=== PATIENT | female | born 1990 | race Caucasian/White ===

== ENCOUNTER 2021-05-29 17:36 | Emergency (ER) | payer BC, SELFPAY ==
--- NOTE | ~2021-05-29 | XR_ITS ---
EXAMINATION: XR chest 2V DATE: 05/29/2021 18:09 INDICATION: Cough. TECHNIQUE: Frontal and lateral views of the chest were obtained on 3 radiographs. COMPARISON: None. FINDINGS: There are airspace opacities in left mid and lower lung zones. No pleural effusion or pneum othorax. The heart size is normal. IMPRESSION: 1. Mild airspace opacities in left mid and lower lung zones, consistent with atelectasis versus pneum onia. Reviewed, dictated and finalized at location A. IMPRESSION: 1. Mild airspace opacities in left mid and lower lung zones, consistent with at electasis versus pneumonia.
[2021-05-29 17:49] VITALS: BP 131/79; PULSE 100; RESP 18; TEMP 35.9; O2SAT 95
--- NOTE | 2021-05-29 17:50 | ED.URI ---
HPI - URI/Sore Throat General Chief Complaint: Upper Respiratory Infection Stated Complaint: Stuffy Nose Time Seen by Provider: 05/29/21 17:50 Source: patient and RN notes reviewed Mode of arrival: ambulatory Limitations: no limitations History of Present Illness HPI Narrative: 31-year-old female presents to the [facility] with complaints of cough, sinus issues, shortness of breath, subjective fever. Related Data Allergies Allergy/AdvReac Type Severity Reaction Status Date / Time No Known Allergies Allergy Verified 05/29/21 18:13 Review of Systems Review of Systems: All systems reviewed & are unremarkable except as noted in HPI and below Constitutional: Constitutional: Reports as per HPI, Reports chills and Reports fever(s) Eyes: Eyes: Reports no additional eye complaints Cardiovascular: Cardiovascular: Reports no additional cardiovascular complaints Respiratory: Respiratory: Reports as per HPI, Reports cough, Reports dyspnea and Reports wheezing Gastrointestinal: Gastrointestinal: Reports no additional gastrointestinal complaints Musculoskeletal: Musculoskeletal: Reports no additional musculoskeletal complaints Integumentary/Breasts: Skin/Breast: Reports system reviewed and no additional complaints, except as docu Neurologic: Reports system reviewed and no additional complaints, except as documented Psychiatric: Psychiatric: Reports no additional psychiatric complaints Allergic/Immunologic: Allergic/Immunologic: Reports no additional allergic/immunologic complaints PMFSH Past Medical History Medical History (Updated 05/29/21 @ 19:59 by Jennyfer Cano) No significant past medical history Surgical History Surgical History (Updated 05/29/21 @ 19:59 by Jennyfer Cano) No significant past surgical history No significant past surgical history Social History Social History (Updated 05/29/21 @ 19:59 by Jennyfer Cano) Living arrangements: with family Occupation/Education: student Gender identity (if verbalized by the patient): Female Comments At the time of my signature, I reviewed and agree with the nursing past medical, surgical, social, and family history. There is no relevant family history pertinent to the patient complaint. Exam Const: General: no acute distress, alert and ill appearing acutely Nutritional Appearance: well nourished and obese Orientation/consciousness: patient oriented x3 Limitations: no limitations HENMT: Head: normal to inspection Ears: external ears normal, TM's normal bilaterally and EAC's normal Eyes: Conjunctivae: conjunctivae normal Pupils: Equal, round and reactive pupils present Neck: Neck: normal visual inspection, no lymphadenopathy and no meningeal signs Chest: Chest palpation & inspection: normal inspection of the chest Resp: Effort & Inspection: normal respiratory effort Auscultation: wheezes (Right lower) and diminished lung sounds bilateral in the lower lung fontaine Cardio: Rate: regular rate Rhythm: regular rhythm : General: Yes no CVA tenderness Back/Spine/Pelvis: Back: no CVA tenderness Skin: General skin exam: normal color Rashes: no rashes Wounds: no wounds Neuro: General: patient oriented x3, moves all extremities, no meningeal signs and no focal motor deficits Speech: normal speech Gait exam (Neuro): Normal gait present Extrem: General: normal to inspection Psych: Appearance: grossly normal and well kempt Mental Status: mental status grossly normal Affect: normal affect Attitude: cooperative Thought content: Yes Normal thought content present Course Course Emergency Course: Reevaluation of patient, lungs now clear to auscultation no longer wheezing. Patient states he is able to take a deep breath and feeling better. Discharge instructions reviewed with patient, as well as provided in writing per nursing staff. The instructions also include specific and strict return/GO TO THE ER as well as f/u information. All questions vera
[2021-05-29] MEDS: IPRATROPIUM BR 0.02% INH SOLN 0.5 MG/2.5 ML VIAL INHALATION (18:11)
[2021-05-29] MEDS: ALBUTEROL SULFATE NEB 2.5 MG/3 ML INH INHALATION (18:11)
== END 2021-05-29 19:00 | disposition home or self-care (01) ==
PROVIDERS: Emergency Provider Nurse Practitioner
DX: J18.9 Pneumonia, unspecified organism (principal); I10 Essential (primary) hypertension
CPT/HCPCS: 71046; 87081; 87880; 99203; G0463

== ENCOUNTER 2022-01-08 11:07 | Emergency (ER) | payer BC, SELFPAY ==
[2022-01-08 11:16] VITALS: BP 145/76; PULSE 84; RESP 16; TEMP 37; O2SAT 99
--- NOTE | 2022-01-08 11:18 | ED.SKABFB ---
HPI - Skin/Abscess/Foreign Bdy General Chief complaint: Skin/Abscess/Foreign Body Stated complaint: Swollen eye and nose Time Seen by Provider: 01/08/22 11:19 Source: patient Mode of arrival: ambulatory Limitations: no limitations History of Present Illness HPI narrative: 31-year-old female presented for complaints of eye swelling and a reddened bump on the bridge of her nose for 3 days. States she is woke each day and Has been swollen shut which reduces throughout the day. Also states had cold symptoms which resolved for a short time, at the onset of the eye swelling she felt more sinus pressure and congestion. She denies pain, vision changes, foreign body sensation, itching, or drainage to the site. She has applied cold compresses. She denies any known allergies. Denies sob, cough, n/v/d/f/c. Related Data Allergies Allergy/AdvReac Type Severity Reaction Status Date / Time No Known Allergies Allergy Verified 01/08/22 11:15 Review of Systems Review of Systems: CONSTITUTIONAL: Denies body aches, fever, chills, or sweats. EYES: Denies visual changes, or discharge. ENT: Denies sore throat, or otalgia. CARDIOVASCULAR: Denies chest pain, palpitations, or edema. RESPIRATORY: Denies cough or dyspnea. GASTROINTESTINAL: Denies abdominal pain, nausea, vomiting, or diarrhea. GENITOURINARY: Denies dysuria or hematuria. SKIN: rash, itching, wounds. MUSCULOSKELETAL: Denies back pain, joint pain, or myalgia. NEUROLOGIC: Denies headache, numbness, tingling, or weakness. PSYCH: Denies depression or anxiety. [facility] Past Medical History Medical History No significant past medical history Surgical History Surgical History No significant past surgical history No significant past surgical history Social History Social History Gender identity (if verbalized by the patient): Female Comments At time of signature, I have reviewed and agree with nursing past medical, surgical, social and family history unless otherwise noted. Please see nursing chart for further information. There is no relevant family history pertinent to the presenting complaint Exam Narrative: GENERAL: Well-appearing HEAD: Normocephalic, atraumatic. EYES: PERRLA, conjunctivae clear, and EOMI. Right eye with mild periorbital swelling, no bruising or drainage; right bridge of nose with firm subcutaneous nontender red nodule approx 0.5cm diameter, no active drainage or vesicles noted ENT: Mucous membranes moist. Oropharynx without edema, erythema or lesions. NECK: Supple. No lymphadenopathy CHEST: Clear to auscultation. No respiratory distress. HEART: Regular rate and rhythm. SKIN: Warm, dry. NEURO: Alert and oriented x3. PSYCH: Normal mood and affect Course Course Emergency Course: Patient is aware of diagnosis, understands and agrees to treatment plan. Anticipatory guidance given. Patient agrees to follow-up as directed and is aware of reasons to seek care at the emergency department. Portions of this record may have been created with voice recognition software Level of Care: Express Care Visit Vital Signs Vital signs: Vital Signs Temperature 98.6 F 01/08/22 11:16 Pulse Rate 84 01/08/22 11:16 Respiratory Rate 16 01/08/22 11:16 Blood Pressure 145/76 H 01/08/22 11:16 Pulse Oximetry 99 01/08/22 11:16 Oxygen Delivery Room Air 01/08/22 11:16 Temperature 98.6 F 01/08/22 11:16 Pulse Rate 84 01/08/22 11:16 Respiratory Rate 16 01/08/22 11:16 Blood Pressure 145/76 H 01/08/22 11:16 Pulse Oximetry 99 01/08/22 11:16 Oxygen Delivery Room Air 01/08/22 11:16 Reviewed MDM - Skin/Abscess/Foreign Bdy MDM Narrative Medical decision making narrative: Patient looks well, nontoxic, afebrile; appropriate for initial outpatient treatment; discussed the
== END 2022-01-08 11:32 | disposition home or self-care (01) ==
PROVIDERS: Emergency Provider Nurse Practitioner Family; PCP Physician Assistant
DX: H00.032 Abscess of right lower eyelid (principal); J34.0 Abscess, furuncle and carbuncle of nose; I10 Essential (primary) hypertension; R73.03 Prediabetes
CPT/HCPCS: 99213; G0463

== ENCOUNTER 2022-01-30 22:08 | Emergency (ER) | payer BC, SELFPAY ==
--- NOTE | ~2022-01-30 | XR_ITS ---
EXAM: XR wrist RT min 3V DATE: 01/30/2022 22:18 HISTORY: fall TODAY, POSTERIOR PAIN WITH ROTATION . COMPARISON: None available. FINDINGS: Normal mineralization. No fracture or dislocation. No lytic or blastic lesion. Joint space s are maintained. No erosion or periosteal change. Soft tissues within normal limits. IMPRESSION: No acute osseous finding in the right wrist. Reviewed, dictated and finalized at location K.
--- NOTE | ~2022-01-30 | XR_ITS ---
EXAM: XR forearm RT 2V DATE: 01/30/2022 22:40 HISTORY: bony tenderness s/p fall,PAIN RT WRIST RADIATES MID FOREARM . COMPARISON: None available. FINDINGS: Normal mineralization. No fracture or dislocation. No lytic or blastic lesion. Joint space s are maintained. No erosion or periosteal change. Soft tissues within normal limits. IMPRESSION: No acute osseous finding in the right forearm . Reviewed, dictated and finalized at location K.
[2022-01-30 22:20] VITALS: BP 150/104; PULSE 96; RESP 16; TEMP 36.2; O2SAT 98
--- NOTE | 2022-01-30 22:43 | ED.GENADULT ---
HPI - General Adult General Chief complaint: Extremity Injury, Upper Stated complaint: right wrist injury Time Seen by Provider: 01/30/22 22:22 History of Present Illness HPI narrative: Patient is a 31-year-old female here for evaluation of right wrist and forearm pain after a fall today. Patient states that she was walking in her usual state of health when she tripped over a curb and landed with her right hand outstretched on the pavement. Denies head injury or loss of consciousness. Since the incident she has been complaining of right wrist pain. Denies numbness or tingling in her hands. Able to move hands without trouble. Denies further injury in the incident. Related Data Home Medications Medication Instructions Recorded Confirmed terbinafine HCl 250 mg tablet tablet 01/30/22 Allergies Allergy/AdvReac Type Severity Reaction Status Date / Time No Known Allergies Allergy Verified 01/30/22 22:08 Review of Systems Review of Systems: Gen.: Denies fevers or chills Eyes: Denies eye pain or visual change ENT: Denies congestion Respiratory: Denies shortness of breath or cough CV: Denies chest pain or palpitations GI: Reports abdominal pain nausea, emesis or diarrhea denies burning, urgency, frequency or hematuria Musculoskeletal: Reports right hand pain. Neuro: Denies numbness, tingling, weakness or focal weakness Skin: Denies rash 10 point review of systems negative, other than as per history of present illness, past medical history and other positives and review of systems PMFSH Past Medical History Medical History No significant past medical history Surgical History Surgical History No significant past surgical history No significant past surgical history Social History Social History Gender identity (if verbalized by the patient): Female Exam Narrative: Gen: Alert, oriented, no acute distress. Eyes: EOMI, no icterus Pulm: Respirations even and unlabored, symmetric thorax expansion, no audible stridor or visible cyanosis CV: Regular rate per telemetry GI: No distension, no voluntary/involuntary guarding Neuro: AOx4, moves all extremities without apparent difficulty or weakness, follows commands MSK: No obvious swelling or deformity noted to right hand or forearm. Tender to palpation over right distal radius and over the midshaft of the radius. No anatomic snuffbox tenderness. No tenderness over other carpal bones or phalanges. Full range of motion in the hand and fingers. Pain elicited in wrist with pronation of hand. Skin: No jaundice, no visible bruising, rashes, lesions or wounds on exposed skin Psych: Normal mood/affect, insight/judgement good, adequate fund of knowledge, recent/remote memory intact Course Vital Signs Vital signs: Vital Signs Temperature 97.2 F L 01/30/22 22:20 Pulse Rate 96 01/30/22 22:20 Respiratory Rate 16 01/30/22 22:20 Blood Pressure 150/104 H 01/30/22 22:20 Pulse Oximetry 98 01/30/22 22:20 Temperature 97.2 F L 01/30/22 22:20 Pulse Rate 95 01/30/22 23:58 Respiratory Rate 20 01/30/22 23:58 Blood Pressure 127/80 01/30/22 23:58 Pulse Oximetry 100 01/30/22 23:58 Medical Decision Making [facility] Narrative Medical decision making narrative: 31-year-old female here for evaluation of right forearm and wrist pain after fall earlier today. Vital signs are normal, she is neurovascularly intact distally to her injury, no obvious deformity noted to wrist or forearm. XR of wrist and forearm negative for acute fracture. No snuffbox tenderness to suggest underlying scaphoid fracture. Likely wrist sprain. Advised supportive care for patient, discussed return precautions she voiced understanding. Vital Signs Vital Signs: Vital Signs Temperature 97.2 F L 01/30/22 2
[2022-01-30] MEDS: ACETAMINOPHEN 500 MG TABLET 1000 MG PO (23:27)
[2022-01-30] MEDS: IBUPROFEN 400 MG TABLET 800 MG PO (23:28)
[2022-01-30 23:58] VITALS: BP 127/80; PULSE 95; RESP 20; O2SAT 100
== END 2022-01-30 23:56 | disposition home or self-care (01) ==
PROVIDERS: Emergency Provider Family Medicine; PCP Physician Assistant
DX: S63.501A Unspecified sprain of right wrist, initial encounter (principal); W01.0XXA Fall on same level from slipping, tripping and stumbling without subsequent striking against object, initial encounter
CPT/HCPCS: 73090; 73110; 99283; A9270

== ENCOUNTER 2022-02-06 12:35 | Outpatient (CLI) | payer BC, SELFPAY ==
--- NOTE | ~2022-02-06 | XR_ITS ---
EXAM: XR wrist RT min 3V DATE: 02/06/2022 12:55 HISTORY: fell over curb x1 week ago . COMPARISON: X-ray forearm 01/30/2022. FINDINGS: Normal mineralization. No fracture or dislocation. No lytic or blastic lesion. Joint space s are maintained. No erosion or periosteal change. Soft tissues within normal limits. IMPRESSION: No acute osseous finding in the right wrist. Reviewed, dictated and finalized at location K.
== END 2022-02-06 12:36 | disposition home or self-care (01) ==
PROVIDERS: PCP Physician Assistant; Visit Provider Physician Assistant
DX: M25.531 Pain in right wrist (principal)
CPT/HCPCS: 73110

== ENCOUNTER 2022-09-28 01:40 | Emergency (ER) | payer BC, SELFPAY ==
[2022-09-28 01:41] VITALS: BP 159/97; PULSE 117; RESP 16; TEMP 36.8; O2SAT 100
--- NOTE | 2022-09-28 01:47 | ECG_ITS ---
Measurements Intervals [place] Rate: 117 P: 55 OR: 154 QRS: 83 QRSD: 96 T: -8 QT: 324 QTc: 454 Interpretive Statements SINUS TACHYCARDIA MINIMAL ST DEPRESSION [0.025+ mV ST DEPRESSION] ABNORMAL QRS-T ANGLE [QRS-T AXIS DIFFERENCE > 60] NO PREVIOUS ECG AVAILABLE FOR COMPARISON Electronically Signed On 09-28-2022 8:40:12 RESEARCH MANAGER by Jazlyn Mcclain M.D.
--- NOTE | 2022-09-28 01:50 | PC.NURSE ---
pt c/o rapid hr. states she was unable to sleep because it felt like she was having palpitations and fast hr. denies any cp or sob. states she has been under a lot of stress lately.
[2022-09-28 02:22] LABS: Basophils Absolute Auto 0.1 K/mm3 (0.0-0.1); Basophils Percent Auto 0.5 % (0.2-1.2); Eosinophils Absolute Auto 0.1 K/mm3 (0-0.3); Eosinophils Percent Auto 1.2 % (0-4.4); Hematocrit 39.7 % (37.0-47.0); Hemoglobin 12.8 g/dL (12.0-15.0); Immature Granulocyte Absolute 0.05 K/mm3 (0.00-0.031); Immature Granulocyte Percent A 0.5 % (0-0.5); Lymphocytes Absolute Auto 2.94 K/mm3 (0.9-3.2); Lymphocytes Percent Auto 26.7 % (18.3-44.2); Mean Corpuscular HGB Conc 32.2 g/dl (32-36); Mean Corpuscular Hemoglobin 27.3 pg (26-34); Mean Corpuscular Volume 84.6 fl (80-100); Mean Platelet Volume 9.3 fl (7.4-10.4); Monocytes Absolute Auto 0.8 K/mm3 (0.1-0.6); Neutrophils Absolute Auto 7.1 K/mm3 (1.3-6.7); Neutrophils Percent Auto 64.1 % (45.5-73.1); Platelet Count Result 326 k/mm3 (150-375); Red Blood Count 4.69 M/mm3 (4.2-5.4)
[2022-09-28] MEDS: LORazepam (*CRX) 0.5 MG TABLET PO (02:22)
[2022-09-28] MEDS: SODIUM CHLORIDE 0.9% IV 2,000 ML 999 ML IV CONT (02:22)
--- NOTE | 2022-09-28 02:22 | ED.GENADULT ---
HPI - General Adult General Chief complaint: Arrhythmia/Palpitations Stated complaint: palpations Time Seen by Provider: 09/28/22 01:54 History of Present Illness HPI narrative: is a 32-year-old female presenting to ED with palpitations. Patient says she was lying in bed inserted to feel anxious. She checked her Fitbit and her heart rate was in the 120s. She also said that she could feel her heartbeat in her head. 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 She has a presentation to give later this week that is causing her significant anxiety. She has a history of anxiety in the past was not taking any medication for it. She denies chest pain, difficulty breathing, abdominal pain, nausea vomiting diarrhea urinary symptoms. Patient states she drinks large amounts of coffee. Related Data Home Medications Medication Instructions Recorded Confirmed terbinafine HCl 250 mg tablet tablet 01/30/22 Allergies Allergy/AdvReac Type Severity Reaction Status Date / Time No Known Allergies Allergy Verified 09/28/22 01:41 [facility] Past Medical History Medical History (Updated 09/28/22 @ 03:24 by Brayan Osorio MD) Acute anxiety HTN (hypertension) No significant past medical history Surgical History Surgical History (Updated 09/28/22 @ 02:24 by Brayan Osorio MD) H/O: No significant past surgical history No significant past surgical history Social History Social History (Updated 09/28/22 @ 02:25 by Brayan Osorio MD) Social History: Patient denies alcohol use, smokes pack cigarettes every 2 days, uses marijuana occasionally Living arrangements: with family Occupation/Education: student Gender identity (if verbalized by the patient): Female Exam Narrative: APPEARANCE: patient is lying supine in bed. She appears anxious Head: atraumatic. EYES: EOMI, NOSE: Atraumatic NECK: Trachea midline RESPIRATORY: No increased rate of breathing CARDIOVASCULAR: tachycardic, no peripheral edema ABDOMINAL: Non-distended, nontender no guarding rebound MUSCULOSKELETAl: No obvious deformities NEURO: Alert. Moving 4/4 extremities SKIN:: Warm, dry. Normal color PSYCHIATRIC: anxious Course Vital Signs Vital signs: Vital Signs Temperature 98.2 F 09/28/22 01:41 Pulse Rate 117 H 09/28/22 01:41 Respiratory Rate 16 09/28/22 01:41 Blood Pressure 159/97 H 09/28/22 01:41 Pulse Oximetry 100 09/28/22 01:41 Oxygen Delivery Room Air 09/28/22 01:41 Temperature 98.2 F 09/28/22 01:41 Pulse Rate 117 H 09/28/22 01:41 Respiratory Rate 16 09/28/22 01:41 Blood Pressure 159/97 H 09/28/22 01:41 Pulse Oximetry 100 09/28/22 01:41 Oxygen Delivery Room Air 09/28/22 01:41 Medical Decision Making MDM Narrative Medical decision making narrative: -Presentation: 32-year-old female presenting with elevated heart rate and feelings of anxiety. -DDX includes but is not limited to: Anxiety, dehydration, hyperthyroid -Co-morbidities complicating care: anxiety, hypertension -Social determinants of health: patient is a grad student with a upcoming thesis. She has a fiance and a 2-year-old child. Notes significant stress at home. -External Chart Review: None -Hx from independent Sources: none -Discussion of Management/Consultants: none -Independent interpretation of studies: lab work was within normal limits. Independent EKG interpretation: Rhythm [sinus], Rate [117], [place] -[normal], DC -[normal], QRS [narrow], QTC [normal], T waves -[negative for concerning inversions], ST Segments - [Negative for concerning elevations] Final interpretations: Sinus tachycardia -Dx tests considered but not ordered: troponin/D-dimer, patient is not having chest pain, she is not complaining of shortness of breath. -Procedures: none -Interventions: 2 L normal saline, 0.5 mg Ativan p.o. -Shared decision making /
[2022-09-28 02:39] LABS: Anion Gap 7 mmol/L (8-16); Blood Urea Nitrogen 15 mg/dL (7-17); Calcium 8.5 mg/dL (8.4-10.2); Carbon Dioxide 25 mmol/L (22-30); Chloride 103 mmol/L (98-107); Estimated Glomerular Filt Rate > 60; Glucose 107 mg/dL (65-110); Magnesium 1.9 mg/dL (1.6-2.3); Potassium 3.8 mmol/L (3.4-5.0); Sodium 135 mmol/L (137-145)
[2022-09-28 03:01] VITALS: BP 116/69; PULSE 92; RESP 14; O2SAT 100
[2022-09-28 03:48] VITALS: BP 123/78; PULSE 85; RESP 16; O2SAT 100
== END 2022-09-28 03:49 | disposition home or self-care (01) ==
PROVIDERS: Emergency Provider Emergency Medicine; PCP Physician Assistant
DX: F41.9 Anxiety disorder, unspecified (principal); I10 Essential (primary) hypertension; R00.0 Tachycardia, unspecified; R94.31 Abnormal electrocardiogram [ECG] [EKG]
CPT/HCPCS: 36415; 80048; 81025; 83735; 84443; 85025; 93005; 96360; 99284; A9270; J7030